=== PATIENT | male | born 1990 | race Caucasian/White ===

== ENCOUNTER 2017-01-08 22:07 | Emergency (ER) | payer OTHER ==
--- NOTE | ~2017-01-08 | EKG ---
PATIENT: SEAN LOPEZ UNIT #: [id number] Ventricular Rate: 73 BPM Atrial Rate: 73 BPM P-R Interval: 152 ms QRS Duration: 86 ms Q-T Interval: 380 ms QTC Calculation(Bezet): 418 ms Calculated R [place]: 69 degrees Calculated T [place]: 68 degrees Diagnosis Line: Sinus rhythm with marked sinus arrhythmia Diagnosis Line: Otherwise normal ECG Diagnosis Line: No previous ECGs available Diagnosis Line: Confirmed by ANSLEY ROSARIO MD ([id number]) on Diagnosis Line: 01/09/2017 3:26:39 PM INTERPRETING MD: ABRAHAM GALEAS
[~2017-01-08 22:07] MED LIST: ASACOL400 MG PO; ORUDIS75 M1 PO; PROCTOFOAM-HC10 G1 TOP
[2017-01-08 22:38] LABS: URINE SOURCE CLEAN CATCH
[2017-01-08 22:41] LABS: URINE APPEARANCE CLEAR; URINE BILIRUBIN NEG (NEG); URINE BLOOD NEG (NEG); URINE COLOR YELLOW; URINE GLUCOSE NEG (NEG); URINE KETONE NEG (NEG); URINE LEUKOCYTE ESTERASE TRACE (NEG); URINE NITRATE NEG (NEG); URINE PROTEIN NEG (NEG); URINE SPECIFIC GRAVITY 1.025 (1.003-1.035); URINE UROBILINOGEN 0.2 MG/DL (NEG)
[2017-01-08 22:43] LABS: URBCS1 AUWI 0-2 /[HPF] (0-2); URINE BACTERIA AUWI NEG (NEGATIVE); URINE SQUAMOUS EPITHELIAL CELL NONE SEEN /[HPF]
[2017-01-08 22:44] LABS: CULTURE INDICATED? NO
[2017-01-08 22:51] LABS: AMPHETAMINE NEG (NEG); BARBITURATES NEG (NEG); BENZODIAZEPINES NEG (NEG); COCAINE NEG (NEG); MARIJUANA POS (NEG); OPIATES NEG (NEG); TRICYCLIC ANTIDEPRESSANTS NEG (NEG); U METHADONE NEG (NEG)
== END 2017-01-08 23:10 | disposition home or self-care (01) ==
LOC: CFTX 22:07
PROVIDERS: Student in an Organized Health Care Education/Training Program
DX: M54.9 Dorsalgia, unspecified (principal); G89.29 Other chronic pain; F12.10 Cannabis abuse, uncomplicated; F31.9 Bipolar disorder, unspecified; F17.200 Nicotine dependence, unspecified, uncomplicated; Z98.890 Other specified postprocedural states
CPT/HCPCS: 80307; 81003; 93005; 99283

== ENCOUNTER 2017-06-04 17:51 | Emergency (ER) | payer OTHER ==
[~2017-06-04] VITALS: Ht 182.9 cm; Wt 68.0 kg
== END 2017-06-04 18:30 | disposition home or self-care (01) ==
LOC: CED 17:51 → CFTX 17:51
DX: S61.011A Laceration without foreign body of right thumb without damage to nail, initial encounter (principal); F17.210 Nicotine dependence, cigarettes, uncomplicated; W26.9XXA Contact with unspecified sharp object(s), initial encounter; Y92.009 Unspecified place in unspecified non-institutional (private) residence as the place of occurrence of the external cause
CPT/HCPCS: 12001; 99283